=== PATIENT | male | born 1950 | race Caucasian/White ===

== ENCOUNTER → 2018-05-17 | Outpatient (CLI) | payer MEDICARE, MEDICAID ==
[2018-05-17 14:32] LABS: BLOOD UREA NITROGEN 24 mg/dL (7-20)
== END ==
LOC: OD 13:05
PROVIDERS: ATTEND Radiology Radiation Oncology
DX: C09.8 Malignant neoplasm of overlapping sites of tonsil (principal); C77.0 Secondary and unspecified malignant neoplasm of lymph nodes of head, face and neck
CPT/HCPCS: 36415; 82565; 84520

== ENCOUNTER → 2018-05-18 | Outpatient (CLI) | payer MEDICARE, MEDICAID ==
--- NOTE | 2018-05-18 14:09 | RADIOLOGY REPORT (SQ) ---
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 Reconstructed coronal and sagittal MPR images reviewed. All images stored on PAC S. All CT scanners at this facility use dose modulation, iterative reconstruction, and/or weight based d osing when appropriate to reduce radiation dose to as low as reasonably achievable (ALARA). [facility]: Dose Right [facility]: CareDose [facility]: Dose Right [facility]: Teradose 4D [facility]: Preact RADIATION DOSE: mGy. LIMITATIONS: No IV contrast. FINDINGS: SKULL BASE: Intact. MAJOR SALIVARY GLANDS: No solid or cystic masses. No inflammatory changes. LYMPHADENOPATHY: No adenopathy. MUCOSAL MASSES OR ASYMMETRY: Mild thickening of the epiglottis, stable. LARYNX/CORDS: Stable asymmetry right vocal cord as before. Closed glottis. No obvious mass. LUNG APICES: Clear. BONES: Intact. THYROID: Normal size. No masses. PARANASAL SINUSES: Clear. OTHER: No other significant finding. 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 TECHNICAL DOCUMENTATION: JOB ID: [id number] Quality ID # [id number]: Final reports with documentation of one or more dose reduction techniques (e.g., Au tomated exposure control, adjustment of the mA and/or kV according to patient size, use of iterative reconstruction technique) 2010 [employer]- All Rights Reserved Reading location - IP/workstation name: [email or web address]
== END ==
LOC: RAD 05-15 12:56
PROVIDERS: ATTEND Radiology Radiation Oncology
DX: C09.8 Malignant neoplasm of overlapping sites of tonsil (principal); C77.0 Secondary and unspecified malignant neoplasm of lymph nodes of head, face and neck
CPT/HCPCS: 70490; 82565

== ENCOUNTER → 2018-05-25 | Outpatient (CLI) | payer MEDICARE, MEDICAID ==
--- NOTE | 2018-05-25 11:49 | RADIOLOGY REPORT (SQ) ---
EXAM DESCRIPTION: CAROTID DOPPLER COMPLETED DATE/TIME: 05/25/2018 11:12 am REASON FOR STUDY: SYNCOPE R55 SYNCOPE AND COLLAPSE COMPARISON: MRI brain 05/13/2016 CT soft tissue neck 05/18/2018 TECHNIQUE: Grayscale ultrasound, Doppler velocity and spectra, and color Doppler images acquired of the extra-cranial carotid and vertebral arteries. Images stored on PACS. LIMITATIONS: None. FINDINGS: RIGHT CAROTID CCA Velocities: Within normal limits. Right common carotid artery peak systolic velocity 0.75 m/sec ICA Velocities Peak systolic 0.66 m/s. End diastolic 0.24 m/s. Proximal ICA/CCA peak systolic ratio normal. Spectra normal. No significant plaque. LEFT CAROTID CCA Velocities: Within normal limits. Left common carotid artery peak systolic velocity 0.88 m/sec ICA Velocities Peak systolic 1.1 m/s. End diastolic 0.29 m/s. Proximal ICA/CCA peak systolic ratio normal. Spectra normal. No significant plaque. VERTEBRAL ARTERIES: Antegrade flow. Normal waveforms. SUBCLAVIAN ARTERIES: Not evaluated OTHER: No other significant finding. IMPRESSION: NO HEMODYNAMICALLY SIGNIFICANT STENOSIS OF THE RIGHT OR LEFT PROXIMAL INTERNAL CAROTID A RTERIES. ANTEGRADE PULSATILE VERTEBRAL ARTERY FLOW BILATERALLY. COMMENT: Quality ID #[id number]: Velocity criteria are extrapolated from the diameter data as defined by t he Society of Radiologists in Ultrasound Consensus Conference. Radiology 2003: 229; 340-346. TECHNICAL DOCUMENTATION: JOB ID: [id number] [employer]- All Rights Reserved Reading location - IP/workstation name: [email or web address]
== END ==
LOC: SP 10:10
PROVIDERS: ATTEND Nurse Practitioner Acute Care
DX: R55 Syncope and collapse (principal)
CPT/HCPCS: 93880

== ENCOUNTER → 2019-01-28 | Outpatient (CLI) | payer MEDICARE, MEDICAID ==
--- NOTE | 2019-01-29 08:34 | RADIOLOGY REPORT (SQ) ---
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 TECHNIQUE: Blood glucose level was verified. Above dose of FDG was injected intravenously. 2-D seg mented attenuation correction images were obtained from the base of the skull to the midthighs. Nonc ontrast CT images were obtained for attenuation correction and fusion with emission images. CT image s were performed without oral or intravenous contrast and are not sensitive for parenchymal lesions. A series of overlapping emission PET images were obtained. [facility] by the radiologist. Images stored on PACS. LIMITATIONS: None. FINDINGS: HEAD AND NECK: No worrisome areas of increased uptake over the head and neck worrisome for recurrent tumor. 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 CHEST: No areas of abnormal metabolic activity in the chest. ABDOMEN AND PELVIS: No areas of abnormal metabolic activity in the abdomen or pelvis. Expected physi ologic activity is present in the genitourinary system and bowel. PROXIMAL LOWER EXTREMITIES: No areas of abnormal metabolic activity in the soft tissues of the lower extremities. BONES: No abnormal metabolic activity in the visualized skeleton. ADDITIONAL CT FINDINGS: Seen osteoarthritis left shoulder, diffuse degenerative changes throughout th e spine with old lower lumbar laminectomy. Calcified coronary arteries and carotid bifurcations. Bi lateral gynecomastia. Hiatal hernia. Left midpole 5 mm intrarenal nonobstructive stone. 2 cm right renal cortical cyst. OTHER: Liver background activity 2.4 SUV. Blood pool background activity 1.7 SUV IMPRESSION: No worrisome increased uptake for recurrent tumor. Probable physiologic activity along the right arytenoid cartilage TECHNICAL DOCUMENTATION: JOB ID: [id number] [employer]- All Rights Reserved Reading location - IP/workstation name: [email or web address]
== END ==
LOC: RAD 16:13
PROVIDERS: ATTEND Otolaryngology
DX: Z85.818 Personal history of malignant neoplasm of other sites of lip, oral cavity, and pharynx (principal); J02.9 Acute pharyngitis, unspecified; R49.0 Dysphonia
CPT/HCPCS: 78815; A9552

== ENCOUNTER → 2020-05-20 | Outpatient (CLI) | payer MEDICARE, MEDICAID ==
--- NOTE | 2020-05-20 11:55 | RADIOLOGY REPORT (SQ) ---
EXAM DESCRIPTION: COOKIE SWALLOW IMAGES COMPLETED DATE/TIME: 05/20/2020 9:08 am REASON FOR STUDY: DYSPHAGIA, UNSPECIFIED TYPE R13.10 DYSPHAGIA, UNSPECIFIED COMPARISON: None. TECHNIQUE: Videofluoroscopic swallowing examination was performed in conjunction with speech patholo gy. Videofluoroscopic imaging was obtained and reviewed and these are the findings: RADIATION DOSE: Fluoro time 5.06 minutes 1 images saved to PACS. LIMITATIONS: None FINDINGS: The patient was brought into the fluoro room and placed upright on a modified barium swall ow chair. The patient was then given multiple consistencies mixed with barium to swallow under live fluoroscopic video guidance. According to the Speech Pathologist there was deep laryngeal penetratio n with trace aspiration seen from residuals. All consistencies were swallowed without difficulty. S ignificant residuals were seen in the vallecula from the cookie consistency. Please refer to the [facility] pathology report for further details. IMPRESSION: DEEP LARYNGEAL PENETRATION WITH TRACE ASPIRATION SEEN FROM RESIDUALS. PLEASE SEE SPEECH PATHOLOGIST REPORT FOR OTHER FINDINGS AND RECOMMENDATIONS. COMMENT: None Quality ID [id number]: Final reports for procedures using fluoroscopy that document radiation exposure elizabeth enedelia, or exposure time and number of fluorographic images (if radiation exposure indices are not avail able) TECHNICAL DOCUMENTATION: JOB ID: [id number] 2010 [employer]- All Rights Reserved Reading location - IP/workstation name: [email or web address]
== END ==
LOC: RAD 07:48
PROVIDERS: ATTEND Otolaryngology
DX: R13.10 Dysphagia, unspecified (principal)
CPT/HCPCS: 74230